=== PATIENT | female | born 1945 | race Caucasian/White ===

== ENCOUNTER 2018-11-12 13:05 | Day surgery (SDC) | payer MEDICARE, BC ==
[~2018-11-12] VITALS: Ht 160 cm; Wt 114.1 kg
--- NOTE | ~2018-11-12 | OP ---
PATIENT NAME: LEIDY TORRES MEDICAL RECORD: [id number] :47 [facility] ADMISSION DATE: SURGEON: DEQUAN CARRIZALES MD DATE OF OPERATION: 11/12/2018 PROCEDURE: Colonoscopy with polypectomy. REFERRING PHYSICIAN: Dr. Bebeto Burroughs. OFFAL TRIMMER-ONCOLOGIST: Dr. Jordan Ward. COCOA ROASTER: Dr. Omega Grimm. INDICATIONS: Ms. Torres is a delightful 73-year-old woman with a history of colon polyps. Her last colonoscopy was 07/06/2015 with findings showing mild pandiverticulosis coli and a small descending colon polyp (hyperplastic in nature). She presents for outpatient surveillance colonoscopy. PREMEDICATIONS: Total IV anesthesia (propofol 380 mg), obstructive sleep apnea, BMI of 45. INSTRUMENT: Olympus video colonoscope, pediatric slim adjustable. PROCEDURE AND FINDINGS: After receiving informed consent, Ms. Torres was placed in left lateral decubitus position, sedated as per anesthesia. After achieving an adequate level of sedation, digital rectal exam was performed that showed few external hemorrhoidal tags. No fissure or fistulas, normal sphincter tone, no palpable rectal masses. The colonoscope was introduced per rectally and advanced to the cecum without difficulty. The cecum, IC valve, and appendiceal orifice were identified and appeared normal. As the colonoscope was withdrawn, careful inspection was made of the dunaway of the colon. Overall mucosa had normal vascular and fold pattern. There were diverticula seen scattered throughout the colon of various both small and large mouthed. In the mid to proximal ascending colon, there were 2 polyps measuring 0.3-0.5 cm in size, sessile, removed with biopsy forcep technique. Retroflexion in the rectum showed no significant internal hemorrhoids. A good prep was present. Withdrawal time was 6 minutes. Ms. Torres tolerated procedure well, no immediate complications. ASSESSMENT: 1. Mild pandiverticulosis coli. 2. Two small ascending colon polyp status post polypectomy. RECOMMENDATIONS: 1. Follow up histopathology. 2. Avoid aspirin, nonsteroidal anti-inflammatory drugs, and KONG-2 inhibitors for 14 days post polypectomy. 3. High fiber diet. 4. Surveillance colonoscopy in 3 years pending nature of polyp histopathology. TRANSINT:[id number] Voice Confirmation ID: [id number] DOCUMENT ID: [id number] OPERATIVE REPORT [id number] SMITH TERRI MD CC: ARGENIS WARD SMITH, JOHN WAYNE and OMEGA BURROUGHS [id number] DICTATION DATE: 11/12/18 1548 PACKAGING ASSOCIATE: 11/12/18 1655 [facility] 11/12/18 [facility] [address] [place] [address]
[~2018-11-12 13:05] MED LIST: ACETAMINOPHEN500 M1 PO; COUMADIN2 MG PO; COUMADIN3 MG PO; GABAPENTIN100 MG PO; JANUVIA50 MG PO; LASIX40 MG PO; MULTIPLE VITAMI1 TA1 PO; PRAVACHOL40 MG PO; PROCRIT/EP4000 UNITS SQ; VITAMIN B-121000 MCG PO
[2018-11-12 13:53] LABS: ANION GAP 14.8 mmol/L (8-16); CARBON DIOXIDE 28.6 mmol/L (21.0-32.0); CREATININE - SERUM 1.5 mg/dL (0.6-1.3); POTASSIUM - SERUM 3.4 mmol/L (3.5-5.1)
[2018-11-12 14:21] VITALS: BP 159/69; Ht 160 cm; Wt 114.1 kg
[2018-11-12] MEDS ORDERED: COLCRYS0.6 MG PO (14:28)
[2018-11-12] MEDS ORDERED: PREDNISONE5 MG PO (14:28)
[2018-11-12 15:01] LABS: BASOPHILS 0.3 % (0-2); HEMOGLOBIN 12.7 g/dL (12-16); IMMATURE GRANULOCYTES 0.4 % (0-5); MCH 32.8 pg (26.0-34.0); MCHC 33.4 g/dL (31.0-37.0); MCV 98.2 fL (80.0-100.0); MEAN PLATELET VOLUME 10.2 fL (7.4-10.4); MONOCYTES 7.8 % (2-11); NEUTROPHILS 66.5 % (40-80); PLATELET COUNT 233 10x3/uL (130-400); RBC 3.87 10x6/uL (4.00-5.40); RDW 13.9 % (11.5-14.5); WBC 7.3 10x3/uL (4.8-10.8)
--- NOTE | 2018-11-12 16:28 | NUR ---
RIGHT HAND PIV DC'D WITH TIP INTACT. PATIENT DRESSING IN PERSONAL CLOTHING
== END 2018-11-12 16:45 | disposition home or self-care (01) ==
LOC: D.OPS 13:05
PROVIDERS: Anesthesiology; ATTEND Internal Medicine Gastroenterology
DX: Z12.11 Encounter for screening for malignant neoplasm of colon (principal); K57.30 Diverticulosis of large intestine without perforation or abscess without bleeding; K63.5 Polyp of colon; Z86.010 Personal history of colon polyps; K64.4 Residual hemorrhoidal skin tags; G47.33 Obstructive sleep apnea (adult) (pediatric)